=== PATIENT | male | born 2000 | race Two or more races ===

== ENCOUNTER 2024-07-25 18:35 | Inpatient (IN) | payer OTHER ==
[2024-07-25] MEDS: SODIUM CHLORIDE 0.9% 500 ML INFUS.BAG IV ONE (19:35)
[2024-07-25 19:45] LABS: BASO % 0.3 % (0-2.0); EOS % 0.1 % (0-4.5); HEMATOCRIT 41.5 % (35.4-49); HEMOGLOBIN 14.2 GM/dL (11.7-16.9); LYMPH % 10.3 % (8-40); MCH 28.5 pg (25.7-33.7); MCHC 34.3 g/dl (32.0-35.9); MEAN CELL VOLUME 83.2 fl (80-96); MEAN PLT VOLUME 8.6 fl (7.5-11.1); MONO % 6.8 % (3.8-10.2); NEUT % 82.5 % (42.8-82.8); PLATELET COUNT 280 10^3/uL (134-434); RBC 4.98 M/mm3 (4.00-5.60); RDW 12.8 % (11.9-15.9); WHITE BLOOD COUNT 17.3 K/mm3 (4.0-10.0)
[2024-07-25 19:46] LABS: PH,URINE 5.5 (5.0-8.0); URINE APPEARANCE CLEAR; URINE BILIRUBIN NEGATIVE (NEGATIVE); URINE COLOR YELLOW; URINE GLUCOSE (UA) NEGATIVE (NEGATIVE); URINE KETONE 1+ (NEGATIVE); URINE LEUK ESTERASE NEGATIVE (NEGATIVE); URINE NITRITE NEGATIVE (NEGATIVE); URINE PROTEIN NEGATIVE (NEGATIVE); URINE UROBILINOGEN 0.2 mg/dL (0.2-1.0)
[2024-07-25 19:50] LABS: INR 1.26 (0.83-1.09); PROTHROMBIN TIME (PATIENT) 14.1 SEC (9.7-13.0)
[2024-07-25 20:02] LABS: POTASSIUM 3.5 mmol/L (3.5-5.1)
[2024-07-25 20:04] LABS: CALCIUM 9.5 mg/dL (8.5-10.1)
[2024-07-25 20:05] LABS: ALBUMIN 4.1 g/dl (3.4-5.0); BLOOD UREA NITROGEN 16.4 mg/dL (7-18)
[2024-07-25 20:08] LABS: CREATININE 1.2 mg/dL (0.55-1.3)
[2024-07-25 20:09] LABS: BILIRUBIN,TOTAL 0.9 mg/dL (0.2-1)
[2024-07-25] MEDS ORDERED: CEFTRIAXONE 1 GM/50 ML BAG ONE (20:10)
[2024-07-25 20:12] LABS: LACTIC ACID 2.4 mmol/L (0.4-2.0)
[2024-07-25] MEDS: CEFTRIAXONE 1 GM in DEXTROSE 5%-WATER - 100 ML IVPB ONE (20:13)
[2024-07-25] MEDS ORDERED: VANCOMYCIN 1 GRAM (PRE-DOCKED) 1,000 MG/250 ML BAG IVPB ONE (21:21)
[2024-07-25] MEDS: VANCOMYCIN 1,000 MG in DEXTROSE 5%-WATER - 250 ML IVPB ONE (21:25)
[2024-07-25] MEDS ORDERED: PIPERACILLIN/TAZOB 3.375 GM 3.375 GM/50 ML BAG IVPB ONE (23:26)
[2024-07-25] MEDS: PIPERACILLIN/TAZOB 3.375 GM 50 ML IVPB SCH (23:37)
[2024-07-26 01:20] VITALS: BMI 20.2
[2024-07-26] MEDS: SODIUM CHLORIDE 1,000 ML IV STA (02:15)
[2024-07-26] MEDS: ACETAMINOPHEN 1000 MG/100 ML BAG IVPB PRN ×2 (02:35→14:49)
[2024-07-26] MEDS: VANCOMYCIN/WATER FOR INJ (PEG) 1,000 MG/200 ML BAG IVPB SCH (08:34)
[2024-07-26] MEDS: ENOXAPARIN NA (PORCINE) 40 MG/0.4 ML DISP.SYRIN SQ SCH (09:01)
[2024-07-26] MEDS ORDERED: ONDANSETRON 4 MG/2 ML VIAL IVPUSH PRN ×3 (09:19→14:21)
[2024-07-26] MEDS ORDERED: PROMETHAZINE HCL 25 MG/1 ML VIAL IVPB PRN ×2 (09:19→11:44)
[2024-07-26] MEDS ORDERED: BUPIVACAINE HCL/PF 0.25% (2.5MG/ML) 10 ML VIAL ONE (09:40)
[2024-07-26] MEDS ORDERED: LIDOCAINE HCL/PF 2% SDV 5ML VIAL ONE (09:46)
[2024-07-26] MEDS ORDERED: PROPOFOL 40 ML ONE (09:46)
[2024-07-26] MEDS ORDERED: MIDAZOLAM HCL 2 MG/2 ML SINGLE DOSE VIAL ONE (09:47)
[2024-07-26] MEDS ORDERED: ROCURONIUM BROMIDE 50 MG/5 ML SYRINGE ONE (09:47)
[2024-07-26 09:59] LABS: HEMOGLOBIN 12.7 GM/dL (11.7-16.9); MCH 28.7 pg (25.7-33.7); MCHC 34.2 g/dl (32.0-35.9); MEAN CELL VOLUME 83.8 fl (80-96); MEAN PLT VOLUME 8.8 fl (7.5-11.1); PLATELET COUNT 233 10^3/uL (134-434); RBC 4.42 M/mm3 (4.00-5.60); RDW 12.6 % (11.9-15.9); WHITE BLOOD COUNT 16.8 K/mm3 (4.0-10.0)
[2024-07-26] MEDS ORDERED: cefOXitin SODIUM 2 GM VIAL (RESTRICTED TO ID) IVPB ONE (10:23)
[2024-07-26] MEDS: cefoTEtan DISODIUM 2 GM VIAL (RESTRICTED TO ID) IVPB ONE (10:23)
[2024-07-26] MEDS: BUPIVACAINE HCL/PF 0.25% (2.5MG/ML) 10 ML VIAL IJ ONE (10:26)
[2024-07-26 10:27] LABS: POTASSIUM 3.5 mmol/L (3.5-5.1)
[2024-07-26 10:29] LABS: ALBUMIN 3.3 g/dl (3.4-5.0); BLOOD UREA NITROGEN 9.5 mg/dL (7-18)
[2024-07-26 10:30] LABS: CALCIUM 8.1 mg/dL (8.5-10.1); MAGNESIUM 1.9 mg/dL (1.8-2.4)
[2024-07-26 10:32] LABS: CREATININE 1.1 mg/dL (0.55-1.3)
[2024-07-26 10:33] LABS: PHOSPHOROUS 3.6 mg/dL (2.5-4.9)
[2024-07-26 10:34] LABS: BILIRUBIN,TOTAL 1.6 mg/dL (0.2-1); TOT PROT 6.8 g/dl (6.4-8.2)
[2024-07-26] MEDS ORDERED: ONDANSETRON 4 MG/2 ML VIAL ONE (11:26)
[2024-07-26] MEDS ORDERED: SUGAMMADEX SODIUM 200 MG/2 ML VIAL ONE (11:26)
[2024-07-26] MEDS ORDERED: KETOROLAC TROMETHAMINE 30 MG/1 ML VIAL ONE (12:07)
[2024-07-26] MEDS: KETOROLAC TROMETHAMINE 15 MG/ML VIAL IVPUSH SCH (12:09)
[2024-07-26] MEDS: PIPERACILLIN/TAZOB 3.375 GM 3.375 GM in DEXTROSE 5%-WATER - 50 ML IVPB SCH ×2 (12:19→19:09)
[2024-07-26] MEDS: VANCOMYCIN 1,000 MG in DEXTROSE 5%-WATER - 250 ML IVPB SCH (12:20)
[2024-07-26] MEDS: LACTATED RINGERS SOLUTION 1,000 ML IV SCH (13:49)
[2024-07-26] MEDS: PIPERACILLIN/TAZOB 3.375 GM 50 ML IVPB SCH (17:54)
[2024-07-27] MEDS: PIPERACILLIN/TAZOB 3.375 GM 50 ML IVPB SCH (02:07)
[2024-07-27 08:05] LABS: BASO % 0.4 % (0-2.0); EOS % 0.3 % (0-4.5); HEMOGLOBIN 11.8 GM/dL (11.7-16.9); LYMPH % 16.1 % (8-40); MCHC 34.6 g/dl (32.0-35.9); MEAN CELL VOLUME 83.9 fl (80-96); MEAN PLT VOLUME 8.8 fl (7.5-11.1); MONO % 8.3 % (3.8-10.2); NEUT % 74.9 % (42.8-82.8); PLATELET COUNT 210 10^3/uL (134-434); RBC 4.06 M/mm3 (4.00-5.60); RDW 12.9 % (11.9-15.9); WHITE BLOOD COUNT 9.2 K/mm3 (4.0-10.0)
[2024-07-27 08:20] LABS: POTASSIUM 3.8 mmol/L (3.5-5.1)
[2024-07-27 08:24] LABS: CALCIUM 8.1 mg/dL (8.5-10.1)
[2024-07-27 08:25] LABS: BLOOD UREA NITROGEN 11.1 mg/dL (7-18)
[2024-07-27] MEDS: ENOXAPARIN NA (PORCINE) 40 MG/0.4 ML DISP.SYRIN SQ SCH (09:44)
[2024-07-27 10:51] VITALS: RESP 18
[2024-07-27 14:53] VITALS: BP 115/72; PULSE 64; TEMP 98.1
== END 2024-07-27 16:00 | disposition home or self-care (01) | DRG 225 ==
LOC: JER 18:35 → JERBED 20:15 → J7W 07-26 00:38
PROVIDERS: ADMIT Internal Medicine; ATTEND Internal Medicine
PROC: 0DTJ4ZZ Resection of Appendix, Percutaneous Endoscopic Approach (ICD-10-PCS; principal; 2024-07-26 08:19)
DX: K35.33 Acute appendicitis with perforation, localized peritonitis, and gangrene, with abscess (principal); I95.9 Hypotension, unspecified; E87.20 Acidosis, unspecified
CPT/HCPCS: 0241U-QW; 36415; 71045-TC-FY; 74177-TC; 80048; 80053; 81003; 83605; 83735; 84100; 85025; 85027; 85610; 86850; 86900; 86901; 88304-TC; 94760; 99285-25; J0131; Q9967